=== PATIENT | female | born 1995 | race Two or more races ===

== ENCOUNTER → 2022-11-21 | Emergency (ER) | payer OTHER ==
[~2022-11-21] VITALS: Ht 149.9 cm; Wt 56.2 kg
[~2022-11-21] MED LIST: FOLIC ACID1 MG
== END | disposition home or self-care (01) ==
LOC: ER 09:55
DX: N93.9 Abnormal uterine and vaginal bleeding, unspecified (principal)

== ENCOUNTER 2023-03-27 17:37 | Emergency (ER) | payer OTHER ==
[~2023-03-27] VITALS: Ht 157.5 cm; Wt 56.7 kg
[2023-03-27 19:02] LABS: AMYLASE 65 U/L (25-115); LIPASE 42 U/L (13-75)
== END 2023-03-27 21:06 | disposition home or self-care (01) ==
LOC: ER 17:37
PROVIDERS: Emergency Medicine
DX: R10.84 Generalized abdominal pain (principal); K80.20 Calculus of gallbladder without cholecystitis without obstruction

== ENCOUNTER 2023-04-20 05:19 | Day surgery (SDC) | payer OTHER ==
[2023-04-19 09:31] LABS: PH,URINE 7.5 (5.0-8.0); URINE APPEARANCE Clear; URINE BILIRRUBIN Negative (NEGATIVE); URINE BLOOD Negative; URINE COLOR Yellow; URINE GLUCOSE Negative (NEGATIVE); URINE LEUKOCYTE Negative; URINE NITRATE Negative; URINE PROTEIN Negative (NEGATIVE)
[2023-04-19 09:37] LABS: URINE BACTERIA 1271.2 uL (0.0-1933); URINE EPITHELIAL CELLS 42.3 uL (0.0-38.8); URINE RBC 2.1 uL (0.0-20.8); URINE WBC 11.2 uL (0.0-23.2)
[2023-04-19 09:57] LABS: HEMATOCRIT 37.9 % (36.0-45.00); HEMOGLOBIN 12.7 g/dL (12.0-15.00); MEAN CELL VOLUME 75.8 fL (80.00-100.00); MEAN CORPUSCULAR HEMOGLOBIN 25.4 pg (27.00-32.0); MEAN CORPUSCULAR HGB CONC 33.5 g/dl (32.0-36.0); PLATELET COUNT 200 K/uL (150-450); RED CELL DISTRIBUTION WIDTH 15.2 % (11.5-14.5)
[2023-04-19 10:22] LABS: INR 1.02; PARTIAL THROMBOPLASTIN TIME 29.2 SECONDS (22.0-34.0); PROTHROMBIN TIME 10.7 SECONDS (9.0-11.5)
[2023-04-19 10:32] LABS: ALBUMIN 3.8 gm/dL (3.4-5.0); BILIRUBIN TOTAL 0.42 mg/dL (0.3-1.2); CALCIUM 9.6 mg/dL (8.5-10.1); CREATININE SERUM 0.59 mg/dL (0.55-1.02); GFR 122.27; GLOBULINA 4.2 G/DL (2.4-3.5); POTASSIUM 4.04 mEq/L (3.5-5.1)
[~2023-04-20 05:19] MED LIST changes: +SPRINTEC 28 DA1 EACH PO
== END 2023-04-20 11:30 | disposition home or self-care (01) ==
LOC: CIR.AMB 05:19
PROVIDERS: ATTEND Surgery
DX: K80.10 Calculus of gallbladder with chronic cholecystitis without obstruction (principal); K43.9 Ventral hernia without obstruction or gangrene; Z20.822 Contact with and (suspected) exposure to COVID-19

== ENCOUNTER → 2024-06-09 | Emergency (ER) | payer OTHER ==
[~2024-06-09] VITALS: Ht 149.9 cm; Wt 53.1 kg
[~2024-06-09] MED LIST changes: +0.9 % SODIUM CHLORIDE 1,000 ML IV ONE; +BUTALBIT-ACETA1 EACH PO; +DIPHENHYDRAMINE HCL 50 MG/ML VIAL 1ML IV ONE; +DIPHENHYDRAMINE HCL 50 MG/ML VIAL 1ML ONE; +FAMOTIDINE/PF 20 MG/2 ML VIAL ONE; +FAMOtidine 10 MG/ML (4ML VIAL) IV ONE; +HALOPERIDOL 1 MG TABLET PO ONE; +HALOPERIDOL LACTATE 5 MG/ML AMPUL ONE; +KETOROLAC TROMETHAMINE 60 MG VIAL IM ONE; +METHYLPREDNISOLONE SOD SUCC 40 MG VIAL IV ONE; +METHYLPREDNISOLONE SOD SUCC 40 MG VIAL ONE; +ONDANSETRON HCL 2 MG/ML VIAL IV ONE; +ONDANSETRON HCL 2 MG/ML VIAL ONE; +SUMATRIPTAN SUCCINATE 6 MG/0.5 ML VIAL SUBCUTANEO ONE
[2024-06-09 20:58] LABS: HEMATOCRIT 43.8 % (36.0-45.00); HEMOGLOBIN 14.4 g/dL (12.0-15.00); MEAN CELL VOLUME 80.4 fL (80.00-100.00); MEAN CORPUSCULAR HEMOGLOBIN 26.4 pg (27.00-32.0); MEAN CORPUSCULAR HGB CONC 32.9 g/dl (32.0-36.0); PLATELET COUNT 226 K/uL (150-450); RED BLOOD COUNT 5.45 M/uL (4.00-6.00)
[2024-06-09 21:22] LABS: ALBUMIN 3.3 gm/dL (3.4-5.0); ALKALINE PHOSPHATASE 100 U/L (50-136); ALT/SGPT 61 U/L (12-78); AMYLASE 72 U/L (25-115); ANION GAP 11 (10.0-20.0); AST/SGOT 17 U/L (15-37); BILIRUBIN TOTAL 0.51 mg/dL (0.3-1.2); BLOOD UREA NITROGEN 14 mg/dL (7-18); BUN CREA RATIO 16 (7.0-25.0); CALCIUM 8.9 mg/dL (8.5-10.1); CARBON DIOXIDE 25 mEq/L (21-32); CHLORIDE 110 mmol/L (98-107); CREATININE SERUM 0.88 mg/dL (0.55-1.02); GFR 76.51; GLUCOSE FASTING 89 mg/dL (65-100); LIPASE 43 U/L (13-75); OSMOLALITY SERUM 283 MOSM/KG (275-295); POTASSIUM 3.64 mEq/L (3.5-5.1); SODIUM 142 mmol/L (136-145); TOTAL PROTEIN 7.3 gm/dL (6.4-8.2)
[2024-06-09 21:23] LABS: HCG QUANTITATIVE < 1 mUI/mL (1-3)
== END | disposition home or self-care (01) ==
LOC: ER 14:40
PROVIDERS: General Practice
DX: G43.909 Migraine, unspecified, not intractable, without status migrainosus (principal); J45.909 Unspecified asthma, uncomplicated; Z20.822 Contact with and (suspected) exposure to COVID-19
CPT/HCPCS: 36415; 96365; 96372; 99282; J1200; J1885; J2405; J3490; J7030

== ENCOUNTER 2024-06-12 15:26 | Emergency (ER) | payer OTHER ==
[~2024-06-12] VITALS: Ht 149.9 cm; Wt 53.1 kg
[~2024-06-12 15:26] MED LIST changes: -0.9 % SODIUM CHLORIDE 1,000 ML IV ONE; -DIPHENHYDRAMINE HCL 50 MG/ML VIAL 1ML IV ONE; -DIPHENHYDRAMINE HCL 50 MG/ML VIAL 1ML ONE; -FAMOTIDINE/PF 20 MG/2 ML VIAL ONE; -FAMOtidine 10 MG/ML (4ML VIAL) IV ONE; -HALOPERIDOL 1 MG TABLET PO ONE; -HALOPERIDOL LACTATE 5 MG/ML AMPUL ONE; -KETOROLAC TROMETHAMINE 60 MG VIAL IM ONE; -METHYLPREDNISOLONE SOD SUCC 40 MG VIAL IV ONE; -METHYLPREDNISOLONE SOD SUCC 40 MG VIAL ONE; -ONDANSETRON HCL 2 MG/ML VIAL IV ONE; -ONDANSETRON HCL 2 MG/ML VIAL ONE; -SUMATRIPTAN SUCCINATE 6 MG/0.5 ML VIAL SUBCUTANEO ONE
[2024-06-12] MEDS ORDERED: NORGESTIMATE-E1 EACH (15:54)
[2024-06-12 16:54] LABS: HEMATOCRIT 42.5 % (36.0-45.00); MEAN CELL VOLUME 80.1 fL (80.00-100.00); MEAN CORPUSCULAR HEMOGLOBIN 26.3 pg (27.00-32.0); MEAN CORPUSCULAR HGB CONC 32.9 g/dl (32.0-36.0); PLATELET COUNT 192 K/uL (150-450); RED CELL DISTRIBUTION WIDTH 14.3 % (11.5-14.5)
[2024-06-12 17:17] LABS: INR 1.02; PARTIAL THROMBOPLASTIN TIME 30.6 SECONDS (22.0-34.0); PROTHROMBIN TIME 11.1 SECONDS (9.0-11.5)
[2024-06-12 17:45] LABS: MAGNESIUM 2.2 mg/dL (1.8-2.4); PHOSPHOROUS 3.5 mg/dL (2.5-4.9)
[2024-06-12 18:06] LABS: ALBUMIN 3.2 gm/dL (3.4-5.0); BILIRUBIN TOTAL 0.55 mg/dL (0.3-1.2); CREATININE SERUM 0.64 mg/dL (0.55-1.02); GFR 110.49; GLOBULINA 3.6 G/DL (2.4-3.5); POTASSIUM 4.21 mEq/L (3.5-5.1); TOTAL PROTEIN 6.8 gm/dL (6.4-8.2)
[2024-06-12] MEDS ORDERED: ACETAMINOPHEN 500 MG GEL..CAP PO STA (20:19)
[2024-06-12] MEDS ORDERED: DEXAMETHASONE SODIUM PHOSP/PF 10 MG/ML VIAL IV STA (20:19)
[2024-06-12] MEDS ORDERED: ACETAMINOPHEN 500 MG GEL..CAP PO ONE (20:27)
[2024-06-12] MEDS ORDERED: METOCLOPRAMIDE HCL 5 MG/ML VIAL ONE (20:27)
[2024-06-12] MEDS ORDERED: KETOROLAC TROMETHAMINE 30 MG VIAL ONE (20:27)
[2024-06-12] MEDS ORDERED: DIPHENHYDRAMINE HCL 50 MG/ML VIAL 1ML ONE (20:27)
[2024-06-12] MEDS ORDERED: DEXAMETHASONE SODIUM PHOSPHATE 4 MG/ML VIAL ONE (20:28)
[2024-06-12] MEDS ORDERED: METOCLOPRAMIDE HCL 5 MG/ML VIAL IV ONE (20:30)
[2024-06-12] MEDS ORDERED: DIPHENHYDRAMINE HCL 50 MG/ML VIAL 1ML IV ONE (20:30)
[2024-06-12] MEDS ORDERED: KETOROLAC TROMETHAMINE 30 MG VIAL IV ONE (20:30)
== END 2024-06-13 01:50 | disposition home or self-care (01) ==
LOC: ER 15:26
PROVIDERS: Emergency Medicine
DX: R53.1 Weakness (principal); G43.909 Migraine, unspecified, not intractable, without status migrainosus; Z20.822 Contact with and (suspected) exposure to COVID-19